=== PATIENT | male | born 1985 | race Caucasian/White ===

== ENCOUNTER 2024-07-14 22:39 | Emergency (ER) | payer OTHER ==
[~2024-07-14] VITALS: Ht 170.2 cm; Wt 85.0 kg
[2024-07-14 22:51] VITALS: O2SAT 98
[2024-07-14 23:21] LABS: HEMATOCRIT 41.3 % (42.0-52.0); MEAN CORPUSCULAR VOLUME 88.1 fL (80.0-94.0); PLATELET 172 x1000/uL (130-400); RED BLOOD CELL COUNT 4.69 mill/uL (4.7-6.1); RED CELL DISTRIBUTION WIDTH 13.3 % (11.6-14.6)
[2024-07-14 23:27] LABS: CHLORIDE 105 mEq/L (98-107); POTASSIUM 3.9 mEq/L (3.5-5.1); SODIUM 142 mEq/L (136-145)
[2024-07-14 23:28] LABS: CARBON DIOXIDE 28 mEq/L (21-32)
[2024-07-14 23:29] LABS: CALCIUM 9.2 mg/dL (8.7-10.4)
[2024-07-14 23:33] LABS: CREATININE 1.4 mg/dL (0.6-1.3); GLUCOSE 105 mg/dL (70-105); UREA NITROGEN BLOOD 14 mg/dL (9-23)
[2024-07-14 23:34] LABS: TROPONIN I HIGH SENSITIVITY 4 ng/L (3.0-53)
[2024-07-15] MEDS ORDERED: IBUP-2029 MT (01:11)
[2024-07-15 01:38] VITALS: BP 140/79; PULSE 76; RESP 16; TEMP 36.8; O2SAT 98
[2024-07-15] MEDS ORDERED: IOHEXOL-350 100 ML BOTTLE ONE (04:38)
== END 2024-07-15 01:40 | disposition home or self-care (01) ==
LOC: ER 22:39
DX: R07.81 Pleurodynia (principal); Z90.49 Acquired absence of other specified parts of digestive tract
CPT/HCPCS: 99285; 80048; 85027; 85379; 84484; 36415; 71101; 71275; Q9967